=== PATIENT | male | born 1995 | race Two or more races ===

== ENCOUNTER 2016-05-28 11:11 | Emergency (ER) | payer OTHER ==
[~2016-05-28] VITALS: Ht 175.3 cm; Wt 77.1 kg
[2016-05-28 11:45] VITALS: BP 120/70
[2016-05-28] MEDS ORDERED: Azithromycin 250mg tab ORAL ONE (12:30)
[2016-05-28] MEDS ORDERED: Lidocaine 1% Plain 30 ml INJ ONE (12:39)
[2016-05-28 12:57] LABS: APPEARANCE,URINE TURBID; KETONES,URINE NEGATIVE (NEGATIVE); LEUKOCYTE ESTERASE ,URINE 3+ (NEGATIVE); NITRITE,URINE NEGATIVE (NEGATIVE); PH,URINE 6 (4.5-8.0); PROTEIN,URINE 3+ (NEGATIVE); UROBILINOGEN,URINE 4 MG/DL (0.0-1.0)
[2016-05-28 13:23] LABS: BACTERIA,URINE MODERATE /HPF; ICTOTEST NEGATIVE; SQUAMOUS EPITHELIAL CELL,UR FEW /LPF (NONE/OCC); WBC,URINE TNTC /HPF (0 - 0)
[2016-05-28 13:42] VITALS: BP 120/70
--- NOTE | 2016-05-28 14:51 | Emergency Room Report ---
History of Present Illness General Chief Complaint: Male Urogenital Problems Source: Patient Present Illness HPI 21 YOM with penile discharge for 2-3 days in setting of unprotected vaginal intercourse 2-3 weeks ago. Denies rash, vesicles or lesion to penis or scrotum. Discharge is yellow. No previous STDs. Denies abd/groin pain, nausea/ vomiting. Feels well otherwise. Allergies: Coded Allergies: No Known Allergies (Unverified , 05/28/16) Patient History Past Medical History: none Past Surgical History: none Pertinent Family History: none Social History: Denies: alcohol use, drug use, smoking Immunizations: UTD Reviewed Nursing Documentation: PMH: Agreed, PSxH: Agreed Nursing Documentation-PMH Past Medical History: No Stated History Review of Systems All Other Systems: negative except mentioned in HPI Physical Exam Vital Signs Date Time Temp Pulse Resp B/P Pulse Ox O2 Delivery O2 Flow Rate FiO2 05/28/16 11:29 97.7 64 20 120/70 98 Room Air Sp02 EP Interpretation: reviewed, normal General Appearance: normal inspection, well appearing, no apparent distress, alert Head: atraumatic ENT: normal ENT inspection, hearing grossly normal, normal voice Neck: normal inspection, full range of motion, supple, no bony tend Respiratory: normal inspection, lungs clear, normal breath sounds, no respiratory distress, no retraction, no wheezing Cardiovascular #1: regular rate, rhythm, no edema Gastrointestinal: normal inspection, normal bowel sounds, non tender, soft, no guarding, no hernia Genitourinary: no CVA tenderness, penis normal, scrotum normal Musculoskeletal: normal inspection, back normal, normal range of motion, Veronica' s Sign negative Neurologic: normal inspection, alert, oriented x3, responsive, engineering lecturer III-XII nml as tested, motor strength/tone normal, speech normal Psychiatric: normal inspection Skin: normal inspection Medical Decision Making Diagnostic Impression: Primary Impression: Dysuria ER Course Signs and symptoms of possible STD, G&C. VSS. Afebrile. No systemic illness Will tx empirically for G&C with Ceftriaxone/Azithro in ED Advised to followup with PMD or at STD clinic for testing Last Vital Signs Date Time Temp Pulse Resp B/P Pulse Ox O2 Delivery O2 Flow Rate FiO2 05/28/16 11:45 97.7 64 20 120/70 98 Room Air Status: improved Disposition: HOME, SELF-CARE Condition: Improved Referrals: NOT CHOSEN IPA/MD,REFERRING Patient Instructions: Urethritis, Adult Additional Instructions: - Follow up with primary care doctor or clinic for STD testing LAMBERT BUCKLEY M.D. May 28, 2016 14:51
== END 2016-05-28 13:42 | disposition home or self-care (01) ==
LOC: EMR 12:15
DX: R30.0 Dysuria (principal)
CPT/HCPCS: 81003; 87086; 96372; 99283; J0696; J2001

== ENCOUNTER 2016-09-18 16:56 | Emergency (ER) | payer OTHER ==
[~2016-09-18] VITALS: Ht 172.7 cm; Wt 81.6 kg
[2016-09-18 19:15] VITALS: BP 140/95
[2016-09-18] MEDS ORDERED: TRAMADOL HCL50 MG ORAL (19:17)
[2016-09-18] MEDS ORDERED: IBUPROFEN600 MG ORAL (19:17)
[2016-09-18 19:29] VITALS: BP 129/91
--- NOTE | 2016-09-18 19:51 | Emergency Room Report ---
History of Present Illness General Chief Complaint: Upper Extremity Injury Source: Patient Present Illness HPI The patient is a 21-year-old presenting with left shoulder pain. The patient states that he was running in the left shoulder hit a pole. He states pain is now a 10 out of 10 dull ache and does not radiate from the shoulder. He states he is unable to move the shoulder. He denies previous injury to this area. He denies any numbness or tingling. He denies any other symptoms including N, V, F , chills Allergies: Coded Allergies: No Known Allergies (Unverified , 05/28/16) Patient History Past Medical History: see triage record Pertinent Family History: none Reviewed Nursing Documentation: PMH: Agreed, PSxH: Agreed Nursing Documentation-PMH Past Medical History: No History, Except For Review of Systems All Other Systems: negative except mentioned in HPI Physical Exam Vital Signs Date Time Temp Pulse Resp B/P Pulse Ox O2 Delivery O2 Flow Rate FiO2 09/18/16 17:01 97.9 73 14 145/95 99 Room Air Sp02 EP Interpretation: reviewed, normal General Appearance: no apparent distress, alert, GCS 15, non-toxic Head: normocephalic, atraumatic Eyes: bilateral eye PERRL, bilateral eye normal inspection Respiratory: chest non-tender, lungs clear, normal breath sounds, speaking full sentences Musculoskeletal: decreased range of motion - L shoulder, tender - TTP over the anterior L shoulder Neurologic: alert, oriented x3, responsive, motor strength/tone normal, sensory intact, speech normal Psychiatric: judgement/insight normal, memory normal, mood/affect normal, no suicidal/homicidal ideation Skin: normal color, no rash, warm/dry, well hydrated Procedures Splinting Splinting : Consent: Verbal Location: L shoulder Pre-Made Type: sling Pre-Proc Neuro Vasc Exam: normal Post-Proc Neuro Vasc Exam: normal Patient Tolerated: Well Complications: None Joint Reduction Joint Reduction : Consent: Verbal Joint Reduction Site: shoulder (L) Procedural Sedation: No Reduction Attempts: One Pre-Procedure NV Exam: Yes Post-Procedure NV Exam: Yes Post Joint Reduction Film: joint reduced Patient Tolerated: Well Complications: None Medical Decision Making PA Attestation Dr. Rojas is my supervising physician. Patient management was discussed with my supervising physician Diagnostic Impression: Primary Impression: Shoulder dislocation Qualified Codes: S43.005A - Unspecified dislocation of left shoulder joint, initial encounter Additional Impression: Hill Sachs deformity, left ER Course The patient is a 21-year-old presenting with left shoulder pain Ddx considered include but not limited to sprain/strain, fracture, contusion PE: NAD L shoulder no AROM. TTP over the anterior deltoid. Radial pulse 2+ Pt is given norco and pain has decreased X-ray of the left shoulder reveals a Hill-Sachs fracture and dislocation of the left shoulder The shoulder is reduced with simple traction in one attempt. Pt tolerated well and now has full AROM. Post reduction films show shoulder is reduced. Sling placed ER precautions given and pt to FU with PMD and orthopedics. He was informed he may need surgery. Other X-Ray Diagnostic Results Other X-Ray Diagnostic Results : X-Ray ordered: L shoulder # of Views/Limited Vs Complete: 3 View Indication: Pain EP Interpretation: Yes Interpretation: other - fracture and dislocation Impression: Other - acute fracture and dislocation PA Scribe Text I am acting as scribe for my supervising physician. My supervising physician's interpretation of the L shoulder xrays are is a Hill Sachs fracture and dislocation Last Vital Signs Date Time Temp Pulse Resp B/P Pulse Ox O2 Delivery O2 Flow Rate FiO2 09/18/16 19:29 88 14 129/91 98 Room Air 09/18/16 19:28 97.9 Status: improved Disposition: HOME, SELF-CARE Condition: Improved Scripts Tramadol Hcl* (ULTRAM*) 50 Mg Tablet 50 MG ORAL Q6H Y for For Pain, #10 TAB 0 Refills Prov: MAYURANSARAN P.A. 09/18/16 Ibuprofen* (MOTRIN*) 600 Mg Tablet 600 MG ORAL Q8H Y for For Pain, #30 TAB 0 Refills Prov: TERZIANPITAY P.A. 09/18/16 Patient Instructions: Shoulder Dislocation, Shoulder Fracture Additional Instructions: I discussed my findings with the patient. All questions and concerns have been answered. Treatment and medication compliance have been addressed. I advised the patient that they need to follow up with PMD in 3-5 days. Return to ED if pain remains or worsens, numbness or tingling occurs, new rash is noticed, fever is noticed, or if needed for any reason. Patient verbalized understanding of discharge instructions. SARAN FONG 13, 2017 19:51
--- NOTE | 2016-09-19 10:58 | Diagnostic Imaging Report ---
Indication: PAIN Technique: 2 views of the left shoulder Comparison: 09/18/2016 Findings: Interim reduction of previously demonstrated left shoulder dislocation. Previously questioned Hill-Sachs deformity not clearly evident on these images, although positioning is not optimal for evaluation of such Impression:Interim reduction, successful, of previously demonstrated left shoulder dislocation.
--- NOTE | 2016-09-19 13:30 | Diagnostic Imaging Report ---
Indication: PAIN Technique: 3 views of the left shoulder Comparison: No Findings: There is anterior dislocation of the right humeral head. Questionable is slight defect of the left humeral head could indicate a small Hill-Sachs deformity.. Impression:Positive for left shoulder dislocation. Equivocal small resultant Hill-Sachs deformity This agrees with the preliminary interpretation provided overnight by Dr. Buck
== END 2016-09-18 19:28 | disposition home or self-care (01) ==
LOC: EMR 17:13
DX: S43.015A Anterior dislocation of left humerus, initial encounter (principal); Y93.02 Activity, running; Y92.89 Other specified places as the place of occurrence of the external cause
CPT/HCPCS: 29240

== ENCOUNTER 2016-09-19 00:49 | Emergency (ER) | payer OTHER ==
[~2016-09-19] VITALS: Ht 172.7 cm; Wt 81.6 kg
[~2016-09-19 00:49] MED LIST: IBUPROFEN600 MG ORAL; TRAMADOL HCL50 MG ORAL
[2016-09-19] MEDS ORDERED: Norco 5mg/325mg tab ORAL ONE (01:15)
[2016-09-19] MEDS ORDERED: Lidocaine 1% Plain 30 ml INJ ONE (01:30)
[2016-09-19 02:09] VITALS: BP 132/89
[2016-09-19 02:15] VITALS: BP 132/89
--- NOTE | 2016-09-19 03:05 | Emergency Room Report ---
History of Present Illness General Chief Complaint: Upper Extremity Injury Source: Patient Present Illness HPI 21-year-old male presents ED complaining of left shoulder pain. States that he was sleeping in bed in his shoulder dislocated. Patient states he was here last night for shoulder dislocation and had it reduced and was placed in a shoulder sling. Patient states pain is 7/10, throbbing, nonradiating. Denies any other injuries. No other aggravating or relieving factors. Denies any other associated symptoms Allergies: Coded Allergies: No Known Allergies (Unverified , 05/28/16) Patient History Past Medical History: none Past Surgical History: none Pertinent Family History: none Social History: Denies: alcohol use, drug use, smoking Immunizations: UTD Reviewed Nursing Documentation: PMH: Agreed, PSxH: Agreed Review of Systems All Other Systems: negative except mentioned in HPI Physical Exam Vital Signs Date Time Temp Pulse Resp B/P Pulse Ox O2 Delivery O2 Flow Rate FiO2 09/19/16 01:08 98.6 83 18 132/89 98 Room Air Sp02 EP Interpretation: reviewed, normal General Appearance: no apparent distress, alert, GCS 15, non-toxic Head: normocephalic, atraumatic Eyes: bilateral eye PERRL, bilateral eye normal inspection ENT: hearing grossly normal, normal pharynx, no angioedema, normal voice Neck: full range of motion, supple/symm/no masses Respiratory: chest non-tender, lungs clear, normal breath sounds, speaking full sentences Cardiovascular #1: regular rate, rhythm, no edema Cardiovascular #2: 2+ carotid (R), 2+ carotid (L), 2+ radial (R), 2+ radial (L) , 2+ dorsalis pedis (R), 2+ dorsalis pedis (L) Gastrointestinal: normal bowel sounds, non tender, soft, non-distended, no guarding, no rebound Rectal: deferred Genitourinary: normal inspection, no CVA tenderness Musculoskeletal: back normal, gait/station normal, tender - L shoulder deformity Neurologic: alert, oriented x3, responsive, motor strength/tone normal, sensory intact, speech normal Psychiatric: judgement/insight normal, memory normal, mood/affect normal, no suicidal/homicidal ideation Reflexes: 3+ bicep (R), 3+ bicep (L), 3+ tricep (R), 3+ tricep (L), 3+ knee (R) , 3+ knee (L) Skin: normal color, no rash, warm/dry, well hydrated Lymphatic: no adenopathy Procedures Splinting Splinting : Consent: Verbal Pre-Made Type: shoulder immobilizer Pre-Proc Neuro Vasc Exam: normal Post-Proc Neuro Vasc Exam: normal Patient Tolerated: Well Complications: None Joint Reduction Joint Reduction : Consent: Verbal Joint Reduction Site: shoulder (L) Procedural Sedation: No Reduction Attempts: One Pre-Procedure NV Exam: Yes Post-Procedure NV Exam: Yes Post Joint Reduction Film: joint reduced Patient Tolerated: Well Complications: None Medical Decision Making Diagnostic Impression: Primary Impression: Shoulder dislocation Qualified Codes: S43.005D - Unspecified dislocation of left shoulder joint, subsequent encounter ER Course Hospital Course 21-year-old male presents to ED complaining of L shoulder pain. says it dislocated after it was reduced here a few hours ago Differential diagnoses include: Fracture, dislocation, sprain, contusion Clinical course Patient placed on stretcher. After initial history and physical I ordered pain medications and x-rays of L shoulder L shoulder x-ray shows dislocation Patient given [place] for pain. Lidocaine injection into the joint space. Using counter traction shoulder was reduced Placed in shoulder immobilizer. Repeat shoulder x-ray shows adequate reduction. Diagnosis - shoulder dislocation Stable and discharged to home. Followup with Ortho. Return to ED if symptoms recur or worsen Other X-Ray Diagnostic Results Other X-Ray Diagnostic Results : X-Ray ordered: L shoulder # of Views/Limited Vs Complete: 3 View Indication: Pain EP Interpretation: Yes Interpretation: no soft tissue swelling, no fractures, other - dislocation Impression: Other - dislocation Interpreting ER Provider: electronically signed by Edward Mendoza mD Last Vital Signs Date Time Temp Pulse Resp B/P Pulse Ox O2 Delivery O2 Flow Rate FiO2 09/19/16 02:15 98.6 85 18 132/89 98 Room Air Status: improved Disposition: HOME, SELF-CARE Condition: Stable Referrals: [facility] (PCP) Patient Instructions: Shoulder Dislocation, [id number] EDWARD MENDOZA M.D. Sep 19, 2016 03:05
--- NOTE | 2016-09-19 12:08 | Diagnostic Imaging Report ---
Indication: PAIN Technique: 3 views of the left shoulder Comparison: 6 hours earlier Findings: Interim recurrence of previously reduced shoulder dislocation. Very questionable small Hill-Sachs deformity is noted, seen only on one projection. Impression:Positive for recurrent left shoulder dislocation.
--- NOTE | 2016-09-19 13:30 | Diagnostic Imaging Report ---
Indication: PAIN Technique: 3 views of the shoulder Comparison: none Findings: Interim reduction of previously demonstrated left shoulder dislocation. Previously question and sulci deformity is not evident on these images. Impression:Successful reduction of previously demonstrated recurrent left shoulder dislocation
== END 2016-09-19 02:15 | disposition home or self-care (01) ==
LOC: EMR 01:40
DX: S43.005D Unspecified dislocation of left shoulder joint, subsequent encounter (principal)
CPT/HCPCS: 23650; 29240; 73030; 99283; J2001

== ENCOUNTER 2018-03-04 16:04 | Emergency (ER) | payer OTHER ==
[~2018-03-04] VITALS: Ht 175.3 cm; Wt 77.1 kg
[2018-03-04] VITALS (7 sets, daily range): BP systolic 113–142; BP diastolic 64–94
[2018-03-04] MEDS ORDERED: fentaNYL 100 mcg/2 mL IV ONE (16:30)
[2018-03-04] MEDS ORDERED: Ketorolac 30mg Inj IV ONE (16:30)
[2018-03-04] MEDS ORDERED: NKM (16:50)
--- NOTE | 2018-03-04 17:13 | Emergency Room Report ---
History of Present Illness General Chief Complaint: Upper Extremity Injury Source: Patient Present Illness HPI Patient presents with left shoulder pain. He was doing pull-ups and felt his shoulder pop out. He's been seen in the past with dislocation. He last ate 6 hours ago. Pain rated 10/10 aching and constant, worse with moving arm. He says the whole arm is numb. No chest pain, dyspnea. No fevers, NVD. Denies major medical problems. In past, shoulder has been reduced without sedation and also with lidocaine. Hill Sach deformity in past. Has not follow up for surgery. Allergies: Coded Allergies: No Known Allergies (Unverified , 05/28/16) Patient History Past Medical History: see triage record, other - Hill Sach deformity shoulder Social History: Denies: smoking Social History Narrative with girlfriend Reviewed Nursing Documentation: PMH: Agreed; PSxH: Agreed Review of Systems Constitutional: Reports: see HPI Respiratory: Reports: see HPI Cardiovascular: Reports: see HPI Gastrointestinal: Reports: see HPI Musculoskeletal: Reports: see HPI Skin: Denies: rash Neurological: Reports: see HPI Hematologic/Lymphatic: Denies: easy bleeding Physical Exam Vital Signs Date Time Temp Pulse Resp B/P (MAP) Pulse Ox O2 Delivery O2 Flow Rate FiO2 03/04/18 16:15 98.1 76 18 142/94 96 Room Air Sp02 EP Interpretation: reviewed, normal General Appearance: well appearing, no apparent distress, GCS 15 Head: normocephalic, atraumatic Eyes: bilateral eye normal inspection, bilateral eye PERRL ENT: moist mucus membranes Neck: supple Respiratory: lungs clear, normal breath sounds Cardiovascular #1: regular rate, rhythm Cardiovascular #2: 2+ radial (R), 2+ radial (L) - good cap fill Gastrointestinal: normal inspection, normal bowel sounds, non tender, no mass, non-distended Musculoskeletal: digits/nails normal, other - Dimpling left acromial glenoid area, tender - Left shoulder Neurologic: motor strength/tone normal, sensory intact - except subjectively deltoid area, normal gait, speech normal, other - Deltoid numbness Skin: normal inspection, warm/dry Procedures Joint Reduction Joint Reduction : Consent: Written Joint Reduction Site: shoulder (L) Procedural Sedation: Yes Reduction Attempts: One Pre-Procedure NV Exam: Yes Post-Procedure NV Exam: Yes Post Joint Reduction Film: joint reduced Patient Tolerated: Well Complications: None Progress Flexion and adduction. Reduced with ease Procedural Sedation Consent: Written Pre-Sedation Assessment: Plan for Sedation Discuss Airway Assessment (Malampati): I Heart: normal Lungs: normal Abdomen: normal Extremities: normal Procedures/Plans: Closed Reduction Plan for Moderate Sedation: Other - etomidate ASA Score: I Start Time: 17:19 End Time: 17:22 Communication: No Apparent Limitation Mental Status: Awake Respiration: Unlabored Skin Condition: WNL Abdomen: WNL Nausea: NO Vomiting: NO Additional Comments: Initially 10 mg given. Still awake. Second 10 mg given with good sedation. Medical Decision Making Diagnostic Impression: Primary Impression: Dislocation of left shoulder joint Qualified Codes: S43.005A - Unspecified dislocation of left shoulder joint, initial encounter Additional Impression: Hill Sachs deformity, left ER Course Patient presents with left shoulder dislocation. Differential includes fracture , dislocation with others. He be receiving analgesia and set up for procedural sedation to reduce the shoulder. X-ray with anterior dislocation. Shoulder reduced. See procedure notes. Post films - reduced. Immobilizer applied by tech. Position excellent and distal neurovasc normal as checked by me. Deltoid numbness improved. Fully awake and ambulatory. D/C with girlfriend. Patient stable for outpatient observation and treatment. Other X-Ray Diagnostic Results Other X-Ray Diagnostic Results #1: X-Ray ordered: Left shoulder # of Views/Limited Vs Complete: 3 View Indication: Other Interpretation: no soft tissue swelling, no fractures, other - Dislocation Impression: Other Electronically Signed by: Electronically signed by Bacilio Slaughter MD Other X-Ray Diagnostic Results #2: X-Ray ordered: l shoulder # of Views/Limited Vs Complete: 1 View Indication: Other EP Interpretation: Yes Interpretation: no dislocation, no soft tissue swelling, no fractures, other - Hill Sach deformity Impression: Other Electronically Signed by: Electronically signed by Bacilio Slaughter MD Last Vital Signs Date Time Temp Pulse Resp B/P (MAP) Pulse Ox O2 Delivery O2 Flow Rate FiO2 03/04/18 18:40 98.6 71 16 124/64 99 Room Air Status: improved Disposition: HOME, SELF-CARE Condition: Improved Scripts Ibuprofen* (MOTRIN*) 600 Mg Tablet 600 MG ORAL Q6H PRN for For Pain, #20 TAB Prov: Bacilio Slaughter MD 03/04/18 Bacilio Slaughter MD Mar 04, 2018 17:12
[2018-03-04] MEDS ORDERED: Etomidate 40mg/20ml Inj IV ONE ×2 (17:15→18:05)
[2018-03-04] MEDS ORDERED: IBUPROFEN600 MG ORAL (18:10)
--- NOTE | 2018-03-05 12:00 | Diagnostic Imaging Report ---
Indication: Pain, status post reduction of shoulder dislocation Technique: 2 views of the left shoulder Comparison: One hour earlier Findings: Interim reduction of previously demonstrated left shoulder anterior dislocation, humeral head now in good position. No definite associated fracture deformity Impression: Successful reduction of previously dislocated left shoulder
--- NOTE | 2018-03-05 15:38 | Diagnostic Imaging Report ---
Indication: Trauma, pain Technique: 2 views of the left shoulder Comparison: none Findings: There is anterior dislocation of the left shoulder. No definite associated fracture deformity. Impression: Positive for left shoulder anterior dislocation This is apparently recognized by the emergency room physician, as there is a subsequent post reduction radiograph available
== END 2018-03-04 18:38 | disposition home or self-care (01) ==
LOC: EMR 18:04
DX: S43.005A Unspecified dislocation of left shoulder joint, initial encounter (principal); Y93.B2 Activity, push-ups, pull-ups, sit-ups; M21.922 Unspecified acquired deformity of left upper arm
CPT/HCPCS: 23650; 73020; 96361; 96374; 96375; 99284; J1885; J2405; J3010

== ENCOUNTER 2018-06-13 02:49 | Emergency (ER) | payer OTHER ==
[2018-06-13] VITALS (8 sets, daily range): BP systolic 122–156; BP diastolic 71–99
[~2018-06-13] VITALS: Ht 172.7 cm; Wt 86.2 kg
[~2018-06-13 02:49] MED LIST changes: +NKM
--- NOTE | 2018-06-13 02:59 | Emergency Room Report ---
History of Present Illness General Chief Complaint: Upper Extremity Injury Source: Patient, Medical Record Present Illness HPI Is a 23-year-old male who is right-hand dominant. He presents with chief complaint of left shoulder dislocation. This is a recurrent issue. He woke up security pain and it popped out during sleep. Similar symptom in the past. Pain is 10 out of 10. Worse with movement. No other injury. Allergies: Coded Allergies: No Known Allergies (Unverified , 05/28/16) Patient History Past Medical History: see triage record, old chart reviewed Past Surgical History: none Pertinent Family History: none Social History: Denies: smoking Immunizations: UTD Reviewed Nursing Documentation: PMH: Agreed; PSxH: Agreed Nursing Documentation-PMH Past Medical History: No History, Except For Review of Systems Eye: Denies: eye pain, blurred vision ENT: Denies: ear pain, nose congestion, throat swelling Respiratory: Denies: cough, shortness of breath Cardiovascular: Denies: chest pain, palpitations Gastrointestinal: Denies: abdominal pain, diarrhea, nausea, vomiting Musculoskeletal: Reports: joint pain; Denies: back pain Skin: Denies: rash Neurological: Denies: headache, numbness Endocrine: Denies: increased thirst, increased urine Hematologic/Lymphatic: Denies: easy bruising All Other Systems: negative except mentioned in HPI Physical Exam Vital Signs Date Time Temp Pulse Resp B/P (MAP) Pulse Ox O2 Delivery O2 Flow Rate FiO2 06/13/18 02:50 98.2 88 13 116/97 100 Room Air vitals normal Sp02 EP Interpretation: reviewed, normal General Appearance: well appearing, no apparent distress, alert Head: normocephalic, atraumatic Eyes: bilateral eye PERRL, bilateral eye EOMI ENT: hearing grossly normal, normal pharynx Neck: full range of motion, supple, no meningismus Respiratory: chest non-tender, lungs clear, normal breath sounds Cardiovascular #1: regular rate, rhythm, no murmur Gastrointestinal: normal bowel sounds, non tender, no mass, no organomegaly, no bruit, non-distended Musculoskeletal: back normal, gait/station normal, other - Left shoulder: Deformity consistent with anterior shoulder d/l. sensation normal over deltoid. elbow nontender. Psychiatric: mood/affect normal Skin: warm/dry Procedures Joint Reduction Joint Reduction : Consent: Written Joint Reduction Site: shoulder (L) Procedural Sedation: Yes Reduction Attempts: One Pre-Procedure NV Exam: Yes Post-Procedure NV Exam: Yes Post Joint Reduction Film: joint reduced Patient Tolerated: Well Complications: None Procedural Sedation Consent: Written Time out called at: 03:47 Pre-Sedation Assessment: Elective Airway Assessment (Malampati): I Heart: normal Lungs: normal Abdomen: normal Extremities: normal Procedures/Plans: Closed Reduction Plan for Moderate Sedation: Propofol ASA Score: I Procedure Narrative Patient given a total of 150 mg of propofol. With gentle traction and external rotation, I reduce the shoulder without any difficulty. Patient tolerated procedure without a problem. Total face time of at least 30 minutes Start Time: 03:45 End Time: 04:30 Post-Sedation Assessment no complications. Patient alert and orient x 4. Communication: No Apparent Limitation Mental Status: Awake Respiration: Unlabored Skin Condition: WNL Abdomen: WNL Nausea: NO Vomiting: NO Medical Decision Making Diagnostic Impression: Primary Impression: Dislocation of left shoulder joint Qualified Codes: S43.005A - Unspecified dislocation of left shoulder joint, initial encounter ER Course Patient presents with anterior dislocation of his left shoulder. No fracture dislocation. No nerve injury. Sensation normal. We'll discharge home. Other X-Ray Diagnostic Results Other X-Ray Diagnostic Results #1: X-Ray ordered: Left shoulder x-rays # of Views/Limited Vs Complete: 3 View Indication: Pain EP Interpretation: Yes Interpretation: no soft tissue swelling, no fractures, other - Anterior dislocation Impression: Other - anterior shoulder d/l Electronically Signed by: Kyrie Navarro MD Other X-Ray Diagnostic Results #2: X-Ray ordered: left shoulder xrays # of Views/Limited Vs Complete: 3 View Indication: Pain EP Interpretation: Yes Interpretation: no dislocation, no soft tissue swelling, no fractures, other - s/p successful reduction Impression: No acute disease Electronically Signed by: Kyrie Navarro MD Last Vital Signs Date Time Temp Pulse Resp B/P (MAP) Pulse Ox O2 Delivery O2 Flow Rate FiO2 06/13/18 02:50 98.2 88 13 116/97 100 Room Air Status: improved Disposition: HOME, SELF-CARE Condition: Stable Scripts Ibuprofen* (MOTRIN*) 600 Mg Tablet 600 MG ORAL THREE TIMES A DAY, #30 TAB 0 Refills Prov: Kyrie Navarro MD 4/7/19 Hydrocodone/Acetaminophen 5-325* (HYDROCODONE/ACETAMINOPHEN 5-325*) 1 Each Tablet 1 TAB ORAL Q6H PRN for For Pain, #15 TAB 0 Refills Prov: Kyrie Navarro MD 06/13/18 Additional Instructions: Follow-up with your doctor in 7 days. Make appointment for surgery. Return if symptom worsen. Kyrie Navarro MD Jun 13, 2018 02:58
--- NOTE | 2018-06-13 03:00 | NUR ---
ED Nurse Note: RECIEVED PT FROM HOME, HERE WITH C/O LEFT SHOULDER DISLOCATION, PT STATES WAS SLEEOING AND AWAKENED TO PAIN AND SHOULDER WAS OUT, PT HAS HX OF THIS X 4, PT IS WAITING FOR SURGERY VIA , PT DENIES ANY OTHER DISCOMFORTS OR INJURIES OR COMPLAINTS, PAIN LEVEL IS 10/10 AND THROBBING, PT IMMEDIATELY ASSISTED TO BED AND GOWNING AND PLACED ON CARDIAC MONITORING, LEFT ARM ELEVATED FOR COMFORT AND SUPPORT.
[2018-06-13] MEDS ORDERED: HYDROmorphone 1mg/ml Carpuject IVP ONE ×2 (03:15→04:15)
[2018-06-13] MEDS ORDERED: Propofol 200mg/20ml IV ONE ×2 (03:45→05:45)
--- NOTE | 2018-06-13 03:45 | NUR ---
ED Nurse Note: MD ATTEMPTED TO PLACE SHOULDER BACK INTO PLACE WITH IM INJECTION, UN-SUCCESSFUL AND PT IS BEING PLACED UNDER MODERATE SEDATION FOR CLOSED REDUCTION OF SHOULDER, PT IS AWARE AND AGREES, CONSENT FORM SIGNED PRIOR AND EXPLAINED AL INFO TO PT AND HIS MOTHER AT BEDSIDE ALSO, PT IS ON CONTINUOUS CARDIAC MONITORING WITH O2 SAT, WILL ASSIST MD WITH PROCEDURE PER PROTOCOL WITH CLOSE CONTINUOUS MONITORING.
--- NOTE | 2018-06-13 03:50 | NUR ---
ED Nurse Note: PROCEDURAL MODERATE SEDATION COMPLETED, PT TOLERATED WELL, PT DURING PROCEDURE AND IMMEDIATELY AFTER RESPONDS TO VERBAL STIMULI, ALL V/S STABLE, O2 SAT ALSO, PT IV LINE INTACT AND PATENT, POST X-RAY COMPLETED, WILL CONTINUE TO CLOSELY MONITOR FOLLOWING PROTOCOL UNTIL DISCHARGE.
[2018-06-13] MEDS ORDERED: IBUPROFEN600 MG ORAL (03:57)
[2018-06-13] MEDS ORDERED: HYDROCODON-ACE1 EA15 ORAL (03:57)
--- NOTE | 2018-06-13 04:05 | NUR ---
ED Nurse Note: PT MORE AWAKE AND ALERT FOLLOWING MODERATE SEDATION, PT C/O HAVING PAIN AT 10, MD INFORMED, PT MEDICATED FOR PAIN WITH DILAUDID, PT REMAINS ON CONTINUOUS MONITORING, O2 QDN=332% ON RA, PT DENIES CP, NO SOB OR LABORED BREATHING, NO S/S OF ANY ADVERSE REACTION NOTED TO ANY MEDS GIVEN, PT IS VERBAL, AWAKE, AND HAS SMALL INTERMITTENT PERIODS OF BEING DROWSY, WILL STAY AT BEDSIDE AND CONTINUE TO MONITOR AND FOLLOW PROTOCOL FOR POST SEDATION.
[2018-06-13] MEDS ORDERED: Ketorolac 30mg Inj IV ONE (04:15)
--- NOTE | 2018-06-13 04:30 | NUR ---
ED Nurse Note: PT RECOVERING WELL, PT IS SITTING ON SIDE OF BED CONVERSING WITH MOTHER, O2 RUK=584% ON RA, PT IS COMPLETELY ORIENTED X 4, PT STATES MEDS GIVEN WERE VERY EFFECTIVE WITH PAIN AT 0/10 CURRENTLY, PT IS IN LEFT ARM SLING, PT GIVEN ORAL WATER AND CRACKERS, TOLERATED WELL, DENIES NAUSEA OR VOMITING, WILL CONTINUE TO CLOSELY MONITOR AND PREPARE FOR PT DISCHARGE TO HOME.
--- NOTE | 2018-06-13 05:00 | NUR ---
ED Nurse Note: PT COMPLETELY IS AWAKENED, ALERT AND ORIENTED X 4, PT AMBULATED TO BATHROOM WITH STEADY GAIT, NO DIZZINESS OR CHANGES OR DISTRESS, PT VOIDS WITHOUT COMPLICATIONS, CONTINUES TO TAKE ORAL WITHOUT COMPLICATIONS, NO PAIN, NO SOB OR LABORED BREATHING, WITH MOTHER TO DRIVE, PT AND MOTHER GIVEN F/U INFO, AFTER CARE INSTRUCTIONS AND BOTH PARTIES RE-VERBALIZE PROPER MEDICATION ADMINISTRATION WITH S/S TO CONTINUE TO MONITOR FOR, INCLUDING IMPORTANCE FOR F/U WITH ORTHO, PT HAS PASSED ALL TEST NEEDED FOR D/C OF SEDATION PROCEDURE SUCCESSFULLY AND D/C TO HOME, PT IV LINE AND ARMBAND REMOVED WITHOUT COMPLICATIONS, NAD NOTED DURING PT D/C TO HOME, PT AMBULATED TO CAR, STEADY GAIT.
--- NOTE | 2018-06-13 05:05 | Diagnostic Imaging Report ---
EXAM: XR Left Shoulder Complete, 2 or More Views CLINICAL HISTORY: PAIN TECHNIQUE: Two or more views of the left shoulder. COMPARISON: 03/04/18. FINDINGS/IMPRESSION: Exam taken at approximately 3 AM. Recurrent anterior dislocation of the shoulder. Possible Hill-Sachs deformity, though if present, suspect chronic/present on previous.
--- NOTE | 2018-06-13 05:07 | Diagnostic Imaging Report ---
EXAM: XR Left Shoulder Complete CLINICAL HISTORY: POST-OP TECHNIQUE: 2 views COMPARISON: Earlier same date. FINDINGS/IMPRESSION: Interval reduction left shoulder. No evidence for dislocation on the 2 views provided.
== END 2018-06-13 05:05 | disposition home or self-care (01) ==
LOC: EMR 03:11
DX: S43.005A Unspecified dislocation of left shoulder joint, initial encounter (principal)
CPT/HCPCS: 23650; 73030; 96374; 96375; 96376; 99284; J1170; J1885; J2405; J2704; Z7502

== ENCOUNTER 2018-06-26 06:51 | Emergency (ER) | payer OTHER ==
[2018-06-26] VITALS (11 sets, daily range): BP systolic 110–143; BP diastolic 43–78
[~2018-06-26] VITALS: Ht 157.5 cm; Wt 83.9 kg
[~2018-06-26 06:51] MED LIST changes: +HYDROCODON-ACE1 EA15 ORAL
--- NOTE | 2018-06-26 07:22 | Emergency Room Report ---
History of Present Illness General Chief Complaint: Upper Extremity Injury Source: Patient Present Illness HPI Patient presents with complaints of dislocation of his left shoulder Patient was here last week and had the shoulder reduced Patient reports multiple dislocations And reports that he is waiting for a 'one time evaluation by the [place]' Denies any other fall or trauma He feels that this happened during to sleep Denies any neuropathy Denies any back or flank pain denies any head injury Patient reports discomfort to the left shoulder itself Allergies: Coded Allergies: No Known Allergies (Unverified , 05/28/16) Patient History Past Medical History: see triage record Pertinent Family History: none Reviewed Nursing Documentation: PMH: Agreed; PSxH: Agreed Nursing Documentation-PMH Past Medical History: No Stated History Review of Systems All Other Systems: negative except mentioned in HPI Physical Exam Vital Signs Date Time Temp Pulse Resp B/P (MAP) Pulse Ox O2 Delivery O2 Flow Rate FiO2 06/26/18 06:53 98.1 125 26 143/76 97 Room Air Sp02 EP Interpretation: reviewed, normal General Appearance: well appearing, no apparent distress Head: normocephalic, atraumatic Eyes: bilateral eye PERRL, bilateral eye EOMI ENT: normal pharynx Neck: supple Respiratory: lungs clear, no retraction, no accessory muscle use Cardiovascular #1: regular rate, rhythm Gastrointestinal: non tender, soft Genitourinary: no CVA tenderness Musculoskeletal: other - Patient holding left shoulder to his side there is obvious clinical deformity and divit in the proximal humerus area indicating dislocation sensory is intact neurovascularly intact distally in that arm Neurologic: alert, oriented x3, responsive Skin: normal color, no rash Lymphatic: no adenopathy Procedures Splinting Splinting : Consent: Emergent Location: Left shoulder Pre-Made Type: Shoulder immobilizer Pre-Proc Neuro Vasc Exam: normal Post-Proc Neuro Vasc Exam: normal Patient Tolerated: Well Complications: None Joint Reduction Joint Reduction : Consent: Emergent Joint Reduction Site: shoulder (L) Procedural Sedation: Yes Reduction Attempts: One Pre-Procedure NV Exam: Yes Post-Procedure NV Exam: Yes Post Joint Reduction Film: joint reduced Patient Tolerated: Well Complications: None Procedural Sedation Consent: Written Time out called at: 08:17 Pre-Sedation Assessment: Plan for Sedation Discuss Airway Assessment (Malampati): I Heart: normal Lungs: normal Abdomen: normal Extremities: normal Procedures/Plans: Closed Reduction Plan for Moderate Sedation: Propofol ASA Score: I Start Time: 08:17 End Time: 08:37 Communication: No Apparent Limitation Mental Status: Awake Respiration: Unlabored Skin Condition: WNL Abdomen: WNL Nausea: NO Vomiting: NO Additional Comments: total [id number] time 20 minutes Medical Decision Making Diagnostic Impression: Primary Impression: Dislocation of left shoulder joint ER Course Given the patient's history and presentation Initially scapular the patient was attempted to reduce the shoulder, patient however is not tolerating this very well continues to flex his hand and clenches muscles, making it difficult to perform any procedure. After repeat attempt patient does not appear to tolerate this well and therefore procedural sedation was required Please refer to the note for full reduction notes however patient has a significantly stable joint and the left shoulder, during the reduction stage the shoulder can easily dislocate and again locate with very minimal manipulation. Patient has had this pathology for several years with several visits back in 2017. Patient reports that he is attempting outpatient follow-up and will return with any changes Other X-Ray Diagnostic Results Other X-Ray Diagnostic Results #1: X-Ray ordered: Left shoulder # of Views/Limited Vs Complete: 2 View Indication: Pain EP Interpretation: Yes Interpretation: no soft tissue swelling, no fractures, other - Dislocation humeral head Impression: Other - Dislocation humeral head Other X-Ray Diagnostic Results #2: X-Ray ordered: Left shoulder # of Views/Limited Vs Complete: 1 View Indication: Other - Reduction EP Interpretation: Yes Interpretation: no dislocation, no soft tissue swelling, no fractures Impression: No acute disease - Appropriate reduction Electronically Signed by: Larry Gurrola DO Last Vital Signs Date Time Temp Pulse Resp B/P (MAP) Pulse Ox O2 Delivery O2 Flow Rate FiO2 06/26/18 07:04 98.1 125 26 143/76 97 Room Air Status: improved Disposition: HOME, SELF-CARE Condition: Improved Scripts Ibuprofen* (MOTRIN*) 600 Mg Tablet 600 MG ORAL Q8H PRN for For Pain, #20 TAB 0 Refills Prov: Larry Gurrola DO 06/26/18 Additional Instructions: Patient is provided with the discharge instructions notified to follow up with primary doctor in the next 2-3 days otherwise return to the er with any worsening symptoms. Please note that this report is being documented using [employer] technology. This can lead to erroneous entry secondary to incorrect interpretation by the dictating instrument. Larry Gurrola DO Jun 26, 2018 07:22
--- NOTE | 2018-06-26 07:54 | Diagnostic Imaging Report ---
3 VIEW LEFT SHOULDER: HISTORY: 23-year-old male with pain. COMPARISON: 06/13/2018. FINDINGS: AP and scapular Y views of the left shoulder demonstrate recurrent anterior dislocation, similar to the prior prereduction shoulder x-rays. No definite acute fracture is identified. Bone density appears normal. The imaged lungs are clear. IMPRESSION: Recurrent left glenohumeral anterior dislocation.
[2018-06-26] MEDS ORDERED: Propofol 200mg/20ml IV ONE ×3 (08:09→09:30)
[2018-06-26] MEDS ORDERED: IBUPROFEN600 MG ORAL (08:52)
--- NOTE | 2018-06-26 09:08 | Diagnostic Imaging Report ---
EXAM: XR Left Shoulder Complete, 2 or More Views CLINICAL HISTORY: POST-OP TECHNIQUE: Two or more views of the left shoulder. COMPARISON: Left shoulder x-ray, 06/26/18 868 FINDINGS: Bones/joints: Single AP view of the shoulder demonstrates alignment of the glenohumeral joint. No definite fracture. Soft tissues: Unremarkable. IMPRESSION: Single AP view of the shoulder demonstrates alignment of the glenohumeral joint. No definite fracture.
== END 2018-06-26 09:41 | disposition home or self-care (01) ==
LOC: EMR 07:08
DX: S43.005A Unspecified dislocation of left shoulder joint, initial encounter (principal); X58.XXXA Exposure to other specified factors, initial encounter; Y92.9 Unspecified place or not applicable
CPT/HCPCS: 23650; 29105; 73030; 96374; 99284; J2704

== ENCOUNTER 2018-10-08 16:21 | Emergency (ER) | payer OTHER ==
[~2018-10-08] VITALS: Ht 172.7 cm; Wt 86.2 kg
[2018-10-08] MEDS ORDERED: NKM (16:33)
--- NOTE | 2018-10-08 16:40 | NUR ---
ED Nurse Note: Patient ambulated to ER c/o stray dog bite on Lt index and pain 8/10. Patient is alert and oriented x4 and ambulatory. skin clean and intact but bite on Lt index. calm and cooperative. no acute distress noted at this time.
[2018-10-08 17:15] VITALS: BP 144/76
--- NOTE | 2018-10-08 17:55 | Emergency Room Report ---
History of Present Illness General Chief Complaint: Animal Bite Source: Patient Present Illness HPI 23-year-old male presents to the emergency department complaining of 4 out of 10 severity pain, open wound and bleeding on the left index finger status post dog bite from a stray dog prior to arrival. Patient states he is up-to-date with his tetanus vaccinations. Patient reports bleeding is subsided at this time. Patient has no information regarding the dog that bit him but he described as a smaller dog. Patient denies paresthesias, weakness or inability to move/use the affected extremity. 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 No other aggravating or relieving factors at this time patient denies wounds elsewhere on his body. Allergies: Coded Allergies: No Known Allergies (Unverified , 05/28/16) Patient History Past Medical History: see triage record Past Surgical History: none Pertinent Family History: none Immunizations: UTD Reviewed Nursing Documentation: PMH: Agreed; PSxH: Agreed Nursing Documentation-PMH Past Medical History: No Stated History Review of Systems All Other Systems: negative except mentioned in HPI Physical Exam Vital Signs Date Time Temp Pulse Resp B/P (MAP) Pulse Ox O2 Delivery O2 Flow Rate FiO2 10/08/18 16:30 99.1 82 16 144/76 (98) 97 Room Air Sp02 EP Interpretation: reviewed, normal General Appearance: no apparent distress, alert, GCS 15, non-toxic Head: normocephalic, atraumatic Eyes: bilateral eye normal inspection, bilateral eye PERRL ENT: hearing grossly normal, normal voice Neck: full range of motion Respiratory: lungs clear, normal breath sounds, speaking full sentences Cardiovascular #1: regular rate, rhythm, normal capillary refill Musculoskeletal: back normal, gait/station normal, normal range of motion, non- tender - No bony ttp, FROM Neurologic: alert, oriented x3, responsive, motor strength/tone normal, sensory intact, speech normal, grossly normal Psychiatric: judgement/insight normal Skin: laceration - small puncture and superficial laceration to the distolateral aspect of the left index finger approx 1cm in length, not bleeding , no tendon or large vascular involvement. FROM, NVI Medical Decision Making PA Attestation Dr. Kraus Is my supervising Physician whom patient management has been discussed with. Diagnostic Impression: Primary Impression: Dog bite of finger Qualified Codes: S61.259A - Open bite of unspecified finger without damage to nail, initial encounter; W54.0XXA - Bitten by dog, initial encounter ER Course 23-year-old male presents to the emergency department complaining of 4 out of 10 severity pain, open wound and bleeding on the left index finger status post dog bite from a stray dog prior to arrival. Patient states he is up-to-date with his tetanus vaccinations. Patient reports bleeding is subsided at this time. Patient has no information regarding the dog that bit him but he described as a smaller dog. Patient denies paresthesias, weakness or inability to move/use the affected extremity. 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 No other aggravating or relieving factors at this time patient denies wounds elsewhere on his body. Ddx considered but are not limited to Cellulitis, rabies, fracture, neurovascular compromise of extremity. Vital signs: are WNL, pt. is afebrile H&PE are most consistent with dog bite- superficial left index finger, no tendon involvement, no evidence of infection or fb. ORDERS: none required at this time, the diagnosis is clinical ED INTERVENTIONS: -Wound Irrigation- under high pressure -sterile dressing applied by facilities technician left index finger Splint applied by facilities technician. Pt. remains neurovascularly intact. DISCHARGE: At this time pt. is stable for d/c to home. Will provide printed patient care instructions, and any necessary prescriptions. Care plan and follow up instructions have been discussed with the patient prior to discharge. * Augmentin BID x 7 days. Last Vital Signs Date Time Temp Pulse Resp B/P (MAP) Pulse Ox O2 Delivery O2 Flow Rate FiO2 10/08/18 17:15 99.1 75 16 144/76 98 Room Air Disposition: HOME, SELF-CARE Condition: Stable Scripts Amoxicillin/Potassium Clav 400-57 Tab Chew (AMOX TR-K CLV 400-57 TAB CHEW) 1 Each Tab.chew 2 TAB ORAL EVERY 12 HOURS for 7 Days, #28 TAB Prov: Latoya Capps 10/08/18 Referrals: [facility],REFERRING (PCP) Departure Forms: Return to Work Return to Work Date: Oct 09, 2018 Work Restrictions: No Heavy Lifting Other Restrictions: wear splint, limited use of left hand x 1 week. Return to Full Activity: Oct 15, 2018 Patient Instructions: Animal Bite Additional Instructions: Take medications as directed. Follow up with a Primary Care Provider in 3-5 days, even if your symptoms have resolved. Return sooner to ED if new symptoms occur, or current symptoms become worse. - Please note that this Emergency Department Report was dictated using [employer] technology software, occasionally this can lead to erroneous entry secondary to interpretation by the dictation equipment. Latoya Capps Oct 08, 2018 17:55
[2018-10-08] MEDS ORDERED: AUGMENTIN 875-1 EAC1 ORAL ×2 (17:56)
[2018-10-08] MEDS ORDERED: AMOX TR-K CLV1 EAC3 ORAL (17:59)
[2018-10-08 18:30] VITALS: BP 144/76
--- NOTE | 2018-10-08 18:30 | NUR ---
ER DISCHARGE NOTE: Patient is cleared to be discharged per ERPA, pt is aox4, accompanied by a friend, on room air, with stable vital signs. pt was given dc instructions, pt was able to verbalize understanding, pt id band removed. pt is able to ambulate with steady gait. pt took all belongings.
== END 2018-10-08 18:30 | disposition home or self-care (01) ==
LOC: EMR 17:25
DX: S61.211A Laceration without foreign body of left index finger without damage to nail, initial encounter (principal); W54.0XXA Bitten by dog, initial encounter; Y92.9 Unspecified place or not applicable
CPT/HCPCS: 29130; 99282